=== PATIENT | female | born 1990 | race Caucasian/White ===

== ENCOUNTER 2022-04-02 07:03 | Outpatient (CLI) | payer BC, SELFPAY ==
--- NOTE | 2022-04-02 07:15 | CRLHL7_ITS ---
For Patients: As a result of the Cures Act, medical imaging exams and procedure reports are released immediately into your electronic medical record. You may view this report before your referring provider. If you have questions, please contact your health care provider. OB ULTRASOUND, 04/02/2022 CLINICAL HISTORY: Dating and viability. COMPARISON: None. LMP: 02/02/2022. ARIEL by LMP: 11/09/2022. GA: 8 w, 3 d. FINDINGS: Baby A: CRL: 0.7 cm, 10 weeks 4 days ARIEL: 11/22/2022. FHR: 128 bpm. Gest. Sac: 2.2 cm, appears within normal limits. Yolk Sac: 2.1 mm, appears within normal limits. Baby B: CRL: 0.7 cm, 6 weeks 4 days ARIEL: 11/22/2022. FHR: 125 bpm. Gest. Sac: 1.7 cm, appears within normal limits. Yolk Sac: 2.4 mm, appears within normal limits. Dichorionic-Diamniotic Right Ovary: 3.9 x 2.3 x 1.9 cm. CL Left Ovary: 3.7 x 2.8 x 2.3 cm. CL IMPRESSION: Dichorionic-diamniotic twin gestation. [place]-rump lengths measure at 6 weeks 4 days giving estimated date of delivery 11/22/2022 for both Baby A and Baby B. This is as compared to clinical dates of 11/09/2022. Nikki Ramirez M.D. Diagnostic Radiologist [email or web address] RACHEL/moises de leon/Dictated by: Nikki Ramirez MD @ 04/02/2022 3:53:00 PM (Electronically Signed)
[2022-04-02 14:18] LABS: HIV 1/2/P24 Combo Screen* Negative (Negative); Hepatitis B Surface Antigen* Negative (Negative); Hepatitis C Virus Antibody* Negative (Negative)
[2022-04-03 21:49] LABS: Rapid Plasma Reagin (RPR) Non Reactive (Non Reactive)
[2022-04-04 01:39] LABS: Rubella Antibody IgG 14.3 IU/mL
== END 2022-04-02 07:04 | disposition home or self-care (01) ==
LOC: US 07:05
PROVIDERS: PCP Family Medicine; Visit Provider Registered Nurse
DX: Z34.91 Encounter for supervision of normal pregnancy, unspecified, first trimester (principal)
CPT/HCPCS: 36415; 76817; 86592; 86703; 86706; 86762; 86803; 86850; 86900; 86901; 87086

== ENCOUNTER 2022-04-02 09:50 | Outpatient (CLI) | payer BC, SELFPAY | END 2022-04-02 09:51 | disposition home or self-care (01) | PROVIDERS: PCP Family Medicine; Visit Provider Registered Nurse | DX: Z34.91 Encounter for supervision of normal pregnancy, unspecified, first trimester (principal); Z3A.01 Less than 8 weeks gestation of pregnancy; Z83.49 Family history of other endocrine, nutritional and metabolic diseases | CPT/HCPCS: 84443; 86592; 86703; 86762; 86803; 86850; 86900; 86901; 87086; 87340; 87491; 87591 ==